=== PATIENT | female | born 1935 | race Caucasian/White ===

== ENCOUNTER 2018-03-21 18:48 | Emergency (ER) | payer OTHER ==
[~2018-03-21] VITALS: Ht 152.4 cm; Wt 59.0 kg
[~2018-03-21 18:48] MED LIST: AVALIDE 150-12.1 TA1; CALAN SR120 MG; EC-NAPROSYN500 MG
[2018-03-21] MEDS ORDERED: EXELON1 EAC1 (19:16)
== END 2018-03-21 22:00 | disposition home or self-care (01) ==
LOC: ER 18:48
DX: R51 Headache (principal); R42 Dizziness and giddiness

== ENCOUNTER 2020-02-24 13:22 | Outpatient (CLI) | payer OTHER ==
[~2020-02-24 13:22] MED LIST changes: +EXELON1 EAC1
== END 2020-02-24 13:30 | disposition home or self-care (01) ==
LOC: NUCLEAR 13:22
PROVIDERS: ATTEND Internal Medicine Rheumatology
DX: M81.0 Age-related osteoporosis without current pathological fracture (principal)

== ENCOUNTER 2020-03-23 14:36 | Emergency (ER) | payer OTHER ==
[~2020-03-23] VITALS: Ht 152.4 cm; Wt 52.2 kg
[2020-03-23] MEDS ORDERED: ZYPREXA2.5 MG (15:23)
[2020-03-23] MEDS ORDERED: [UNRECOGNIZED DRUG - OTHER] (15:23)
== END 2020-03-23 20:14 | disposition home or self-care (01) ==
LOC: ER 14:36
DX: S01.521A Laceration with foreign body of lip, initial encounter (principal); G30.8 Other Alzheimer's disease; F02.80 Dementia in other diseases classified elsewhere, unspecified severity, without behavioral disturbance, psychotic disturbance, mood disturbance, and anxiety; F41.8 Other specified anxiety disorders; W18.09XA Striking against other object with subsequent fall, initial encounter; Y93.89 Activity, other specified; Y92.018 Other place in single-family (private) house as the place of occurrence of the external cause; Y99.8 Other external cause status

== ENCOUNTER 2020-05-19 10:21 | Outpatient (CLI) | payer OTHER ==
[~2020-05-19 10:21] MED LIST changes: +ZYPREXA2.5 MG; +[UNRECOGNIZED DRUG - OTHER]
== END 2020-05-19 10:45 ==
LOC: SONOGRAMA 10:21
DX: R59.0 Localized enlarged lymph nodes (principal)

== ENCOUNTER 2020-05-25 14:43 | Outpatient (CLI) | payer OTHER | END 2020-05-25 14:51 | disposition home or self-care (01) | LOC: SONOGRAMA 14:43 | PROVIDERS: ATTEND Pathology Anatomic Pathology & Clinical Pathology | DX: R59.0 Localized enlarged lymph nodes (principal) ==

== ENCOUNTER 2020-06-01 13:06 | Outpatient (CLI) | payer OTHER | END 2020-06-01 13:08 | disposition home or self-care (01) | LOC: LAB 13:06 | PROVIDERS: ATTEND Radiology Diagnostic Radiology | DX: N20.0 Calculus of kidney (principal) ==

== ENCOUNTER 2020-06-02 09:54 | Outpatient (CLI) | payer OTHER | END 2020-06-02 10:09 | disposition home or self-care (01) | LOC: TOM 09:54 | PROVIDERS: ATTEND Internal Medicine | DX: L02.11 Cutaneous abscess of neck (principal) | CPT/HCPCS: 70492; Q9965 ==

== ENCOUNTER 2020-06-22 13:05 | Outpatient (CLI) | payer OTHER | END 2020-06-22 13:07 | disposition home or self-care (01) | LOC: SONOGRAMA 13:05 | PROVIDERS: ATTEND Pathology Anatomic Pathology & Clinical Pathology | DX: R59.0 Localized enlarged lymph nodes (principal) ==

== ENCOUNTER 2021-03-30 15:28 | Emergency (ER) | payer OTHER ==
[~2021-03-30] VITALS: Ht 162.6 cm; Wt 40.8 kg
== END 2021-03-30 20:05 | disposition home or self-care (01) ==
LOC: ER 15:28
DX: S32.591A Other specified fracture of right pubis, initial encounter for closed fracture (principal); M79.651 Pain in right thigh; W18.09XA Striking against other object with subsequent fall, initial encounter; Y93.89 Activity, other specified; Y92.018 Other place in single-family (private) house as the place of occurrence of the external cause; Y99.8 Other external cause status

== ENCOUNTER 2021-04-01 09:01 | Outpatient (CLI) | payer OTHER | END 2021-04-01 09:10 | disposition home or self-care (01) | LOC: RAD 09:01 → TOM 09:01 | PROVIDERS: ATTEND Orthopaedic Surgery | DX: M25.551 Pain in right hip (principal) ==

== ENCOUNTER 2021-04-23 15:15 | Outpatient (CLI) | payer OTHER | END 2021-04-23 15:23 | disposition home or self-care (01) | LOC: RAD 15:15 | PROVIDERS: ATTEND Orthopaedic Surgery | DX: S32.414D Nondisplaced fracture of anterior wall of right acetabulum, subsequent encounter for fracture with routine healing (principal); S32.591D Other specified fracture of right pubis, subsequent encounter for fracture with routine healing ==

== ENCOUNTER 2021-11-07 14:57 | Inpatient (IN) | payer OTHER ==
[~2021-11-07] VITALS: Ht 160 cm; Wt 54.4 kg
--- NOTE | 2021-11-07 15:11 | NUR ---
SE RECIBE PTE ALERTA Y ORIENTADA EN PERSONA EN AMBULANCIA, PARAMEDICOS REFIERE TRAER A PTE POR DOLOR EN CADERA LT. SE MIDEN S/V A PTE Y SE COLOCA EN SARITA.
--- NOTE | 2021-11-07 16:52 | NUR ---
PTE EVALUADO POR MD [place] [facility]. SE EDUCA A PTE SOBRE EL MISMO Y REFEIRE ENTENDER. SE EJECUTAN ORDENES BAJO MEDIDAS ACEPTICAS., PTE PEND A RESULTADOS DE LAB.
[2021-11-07] MEDS ORDERED: RAZADYNE ER16 M1 PO (19:20)
== END 2021-11-10 22:38 | disposition home or self-care (01) | DRG 521 ==
LOC: ER 14:57 → SEC-K 20:31 → SURG 20:31 → O/R 20:31 → SURG 11-08 20:25
PROVIDERS: Orthopaedic Surgery; ADMIT Internal Medicine; ATTEND Internal Medicine
PROC: 0SRS0JZ Replacement of Left Hip Joint, Femoral Surface with Synthetic Substitute, Open Approach (ICD-10-PCS; principal; 2021-11-08 13:00)
DX: S72.012A Unspecified intracapsular fracture of left femur, initial encounter for closed fracture (principal); U07.1 COVID-19; G30.9 Alzheimer's disease, unspecified; F02.80 Dementia in other diseases classified elsewhere, unspecified severity, without behavioral disturbance, psychotic disturbance, mood disturbance, and anxiety; I10 Essential (primary) hypertension

== ENCOUNTER 2022-12-18 16:26 | Emergency (ER) | payer OTHER ==
[~2022-12-18] VITALS: Ht 160 cm; Wt 45.4 kg
[~2022-12-18 16:26] MED LIST changes: +RAZADYNE ER16 M1 PO
== END 2022-12-19 00:32 | disposition home or self-care (01) ==
LOC: ER 16:26
PROVIDERS: General Practice
DX: R13.19 Other dysphagia (principal); Z88.0 Allergy status to penicillin; Z88.6 Allergy status to analgesic agent; Z20.822 Contact with and (suspected) exposure to COVID-19